=== PATIENT | male | born 1935 | race Caucasian/White ===

== ENCOUNTER 2019-10-14 21:28 | Inpatient (IN) ==
[2019-10-14] MEDS ORDERED: MORPHINE 4 MG/1 ML VIAL IV ONE (23:45)
[2019-10-14] MEDS ORDERED: ONDANSETRON 4 MG/2 ML VIAL IV STA (23:45)
[2019-10-15 00:20] LABS: Apearance,Urine CLEAR (Clear); Bilirubin,Urine Negative (Negative); Blood, Urine Negative (Negative); Glucose,Urine (UA) >=500 mg/dL (Negative); Hyaline Casts,Urine 1 /LPF (0-3); Ketones,Urine Negative (Negative); Nitrite,Urine Negative (Negative); Protein,Urine Negative; RBC,Urine 1 /HPF (0-4); Renal Epithelial Cells,Urine Occasional /HPF (<1); Squamous Epithelial Cell,Urine Occasional /HPF (0-10); Urine Color Straw (Yellow); Urine Specific Gravity 1.013 (1.001-1.035); Urine Urobilinogen < 2.0 EU/DL (0.2-1.0); WBC,Urine 1 /HPF (0-6)
[2019-10-15] MEDS ORDERED: PROMETHAZINE 25 MG/1 ML VIAL IM PRN (00:35)
[2019-10-15] MEDS ORDERED: hydrALAZINE 20 MG/1 ML VIAL IV PRN (00:35)
[2019-10-15] MEDS ORDERED: diphenhydrAMINE CAP 25 MG CAPSULE PO PRN (00:35)
[2019-10-15] MEDS ORDERED: DEXTROSE 50% 25 GM/50 ML VIAL IV PRN ×2 (00:35→05:20)
[2019-10-15] MEDS ORDERED: DOCUSATE SODIUM 100 MG CAPSULE PO PRN (00:35)
[2019-10-15] MEDS ORDERED: GLUCAGON 1 MG VIAL IM PRN ×2 (00:35→05:20)
[2019-10-15] MEDS ORDERED: ONDANSETRON 4 MG/2 ML VIAL IV PRN (00:35)
[2019-10-15] MEDS ORDERED: ZALEPLON 5 MG CAPSULE PO PRN (00:35)
[2019-10-15] MEDS ORDERED: NICOTINE 21 MG/24 HR PATCH TRANSDERM PRN (00:35)
[2019-10-15 00:37] LABS: Calcium 9.2 MG/DL (8.5-10.1); Osmolality,Calculated 282.4 MOS/KG (273-304)
[2019-10-15 00:55] LABS: Basophils % 0.1 % (0.0-0.8); Eosinophils % 0.2 % (0.00-10.9); Hematocrit 35.8 VOL% (42.0-52.0); Hemoglobin 12.1 GM/DL (14.0-18.0); Immature Granulocytes Absolute 0.12 #; Lymphocytes # 0.9 10*3/uL (1.4-4.0); Lymphocytes % 7.5 % (21.2-54.2); Mean Corpuscular HGB Conc 33.8 GM/DL (32-36); Mean Corpuscular Volume 88.6 FL (87-102); Mean Platelet Volume 10.6 FL (9.6-12.0); Monocytes % 5.3 % (1.7-12.7); Neutrophils % 85.9 % (38.7-73.9); PT Patient Result 10.5 SECS (9.8-11.9); Partial Thromboplastin Time 28.5 SECS (23.9-33.8); Platelet Count 167 T/CUMM (130-400); Red Blood Count 4.04 MC/CUMM (3.8-5.5); Red Cell Distribution Width 12.5 % (9.3-17.3)
[2019-10-15] MEDS: MORPHINE 4 MG/1 ML VIAL IV PRN (02:06)
[2019-10-15] MEDS: POTASSIUM CHLORIDE 20 MEQ TABLET PO SCH ×2 (02:33→14:05)
[2019-10-15] MEDS: SODIUM CHLOR 0.9% KCL 40 MEQ 40 MEQ/1,000 ML BAG IV SCH ×2 (03:53→14:04)
[2019-10-15 06:17] LABS: Basophils % 0.2 % (0.0-0.8); Hematocrit 33.1 VOL% (42.0-52.0); Hemoglobin 11.3 GM/DL (14.0-18.0); Immature Granulocytes % 0.6 %; Immature Granulocytes Absolute 0.07 #; Lymphocytes # 0.8 10*3/uL (1.4-4.0); Lymphocytes % 6.3 % (21.2-54.2); Mean Corpuscular HGB Conc 34.1 GM/DL (32-36); Mean Corpuscular Volume 88.3 FL (87-102); Mean Platelet Volume 10.6 FL (9.6-12.0); Monocytes % 5.6 % (1.7-12.7); Neutrophils % 87.3 % (38.7-73.9); Platelet Count 158 T/CUMM (130-400); Red Blood Count 3.75 MC/CUMM (3.8-5.5); Red Cell Distribution Width 12.6 % (9.3-17.3); White Blood Count 12.4 T/CUMM (4-12)
[2019-10-15] MEDS ORDERED: ceFAZolin 2,000 MG in PREMIX 1 EACH IV ONE (06:42)
[2019-10-15 06:43] LABS: Albumin 3.1 G/DL (3.4-5.0); Bilirubin,Total 0.8 MG/DL (0.2-1.0); Calcium 8.9 MG/DL (8.5-10.1); Total Protein 6.7 G/DL (6.4-8.3)
[2019-10-15 06:44] LABS: Osmolality,Calculated 283.2 MOS/KG (273-304)
[2019-10-15] MEDS: PANTOPRAZOLE 40 MG VIAL IV SCH (10:06)
[2019-10-15] MEDS ORDERED: ROPIVACAINE 0.5% 30 ML VIAL ONE (13:39)
[2019-10-15] MEDS: INSULIN LISPRO 100 UNIT/ML SUBCUT SCH ×4 (14:04→20:41)
[2019-10-15] MEDS ORDERED: fentaNYL 100 MCG/2 ML VIAL ONE (14:12)
[2019-10-15] MEDS ORDERED: fentaNYL 100 MCG/2 ML VIAL IV ONE (14:31)
[2019-10-15] MEDS ORDERED: DEXMEDETOMIDINE 200 MCG/2 ML VIAL ONE (14:58)
[2019-10-15] MEDS ORDERED: TRANEXAMIC ACID 1,000 MG/10 ML VIAL ONE (14:58)
[2019-10-15] MEDS ORDERED: BUPIVACAINE SPINAL 0.75% 2 ML AMP SPINAL ONE (14:58)
[2019-10-15] MEDS ORDERED: ceFAZolin 1,000 MG VIAL ONE (15:35)
[2019-10-15] MEDS ORDERED: BACITRACIN OINT 0.9 GM PACK TOP ONE (16:45)
[2019-10-15] MEDS ORDERED: KETAMINE 500 MG/10 ML VIAL ONE (17:07)
[2019-10-15] MEDS ORDERED: PHENYLEPHRINE 1 MG/10 ML SYRINGE IV ONE (17:08)
[2019-10-15] MEDS: KETOROLAC 15 MG/1 ML VIAL IV SCH ×2 (18:18→20:44)
[2019-10-15] MEDS: ceFAZolin 2,000 MG in PREMIX 1 EACH IV SCH (18:44)
[2019-10-16] MEDS: POTASSIUM CHLORIDE 20 MEQ TABLET PO SCH ×2 (01:11→13:35)
[2019-10-16] MEDS: ceFAZolin 2,000 MG in PREMIX 1 EACH IV SCH (03:50)
[2019-10-16] MEDS: KETOROLAC 15 MG/1 ML VIAL IV SCH ×2 (04:44→09:37)
[2019-10-16] MEDS: SODIUM CHLOR 0.9% KCL 40 MEQ 40 MEQ/1,000 ML BAG IV SCH ×3 (04:46→16:54)
[2019-10-16 06:28] LABS: Basophils % 0.1 % (0.0-0.8); Eosinophils % 0.2 % (0.00-10.9); Hematocrit 26.2 VOL% (42.0-52.0); Hemoglobin 8.8 GM/DL (14.0-18.0); Immature Granulocytes % 0.3 %; Immature Granulocytes Absolute 0.03 #; Lymphocytes # 1.1 10*3/uL (1.4-4.0); Lymphocytes % 11.8 % (21.2-54.2); Mean Corpuscular HGB Conc 33.6 GM/DL (32-36); Mean Platelet Volume 10.3 FL (9.6-12.0); Monocytes % 7.7 % (1.7-12.7); Neutrophils % 79.9 % (38.7-73.9); Platelet Count 133 T/CUMM (130-400); Red Blood Count 2.91 MC/CUMM (3.8-5.5); Red Cell Distribution Width 12.9 % (9.3-17.3); White Blood Count 9.2 T/CUMM (4-12)
[2019-10-16 06:44] LABS: Calcium 8.1 MG/DL (8.5-10.1); Osmolality,Calculated 286.7 MOS/KG (273-304)
[2019-10-16] MEDS: INSULIN LISPRO 100 UNIT/ML SUBCUT SCH ×4 (08:31→21:15)
[2019-10-16] MEDS: PANTOPRAZOLE 40 MG VIAL IV SCH (08:32)
[2019-10-16] MEDS: FONDAPARINUX 2.5 MG/0.5 ML SYRINGE SUBCUT SCH (09:37)
[2019-10-16] MEDS: ACETAMINOPHEN 325 MG TABLET PO PRN (16:53)
[2019-10-17] MEDS: POTASSIUM CHLORIDE 20 MEQ TABLET PO SCH ×2 (01:00→13:38)
[2019-10-17] MEDS: SODIUM CHLOR 0.9% KCL 40 MEQ 40 MEQ/1,000 ML BAG IV SCH ×2 (01:16→16:53)
[2019-10-17] MEDS: MORPHINE 4 MG/1 ML VIAL IV PRN (02:11)
[2019-10-17 08:02] LABS: Basophils % 0.1 % (0.0-0.8); Eosinophils # 0.1 10*3/uL (0.0-0.87); Eosinophils % 1.7 % (0.00-10.9); Hematocrit 22.3 VOL% (42.0-52.0); Hemoglobin 7.5 GM/DL (14.0-18.0); Immature Granulocytes % 0.7 %; Immature Granulocytes Absolute 0.05 #; Lymphocytes # 1.6 10*3/uL (1.4-4.0); Lymphocytes % 20.6 % (21.2-54.2); Mean Corpuscular HGB Conc 33.6 GM/DL (32-36); Mean Corpuscular Volume 89.6 FL (87-102); Mean Platelet Volume 11.1 FL (9.6-12.0); Monocytes % 6.2 % (1.7-12.7); NRBC # 0.02 10*3/uL; Neutrophils % 70.7 % (38.7-73.9); Platelet Count 117 T/CUMM (130-400); Red Blood Count 2.49 MC/CUMM (3.8-5.5); White Blood Count 7.6 T/CUMM (4-12)
[2019-10-17] MEDS ORDERED: FUROSEMIDE 40 MG/4 ML VIAL IV PRN (08:18)
[2019-10-17] MEDS ORDERED: SODIUM CHLORIDE 0.9% 1,000 ML IV PRN (08:18)
[2019-10-17 08:25] LABS: Calcium 8.2 MG/DL (8.5-10.1)
[2019-10-17] MEDS: PANTOPRAZOLE 40 MG VIAL IV SCH (08:38)
[2019-10-17] MEDS: FONDAPARINUX 2.5 MG/0.5 ML SYRINGE SUBCUT SCH (08:38)
[2019-10-17] MEDS: INSULIN LISPRO 100 UNIT/ML SUBCUT SCH ×4 (08:38→22:34)
[2019-10-17] MEDS: ACETAMINOPHEN 325 MG TABLET PO PRN (14:47)
[2019-10-17] MEDS: MAGNESIUM HYDROXIDE SUSP 30 ML UDCUP PO PRN (16:22)
[2019-10-18 00:45] LABS: Hematocrit 33.7 VOL% (42.0-52.0); Hemoglobin 11.5 GM/DL (14.0-18.0)
[2019-10-18] MEDS: POTASSIUM CHLORIDE 20 MEQ TABLET PO SCH (04:32)
[2019-10-18 07:04] LABS: Basophils % 0.2 % (0.0-0.8); Eosinophils # 0.1 10*3/uL (0.0-0.87); Eosinophils % 0.9 % (0.00-10.9); Hematocrit 32.1 VOL% (42.0-52.0); Hemoglobin 11.1 GM/DL (14.0-18.0); Immature Granulocytes % 0.7 %; Immature Granulocytes Absolute 0.06 #; Lymphocytes # 1.1 10*3/uL (1.4-4.0); Lymphocytes % 11.8 % (21.2-54.2); Mean Corpuscular HGB Conc 34.6 GM/DL (32-36); Mean Corpuscular Volume 86.8 FL (87-102); Mean Platelet Volume 10.9 FL (9.6-12.0); Monocytes % 6.7 % (1.7-12.7); Neutrophils % 79.7 % (38.7-73.9); Platelet Count 154 T/CUMM (130-400); Red Cell Distribution Width 13.2 % (9.3-17.3); White Blood Count 9.1 T/CUMM (4-12)
[2019-10-18 07:21] LABS: Osmolality,Calculated 280.1 MOS/KG (273-304)
[2019-10-18 07:49] VITALS: BP 120/61
[2019-10-18] MEDS: INSULIN LISPRO 100 UNIT/ML SUBCUT SCH ×2 (08:02→12:24)
[2019-10-18] MEDS: MAGNESIUM HYDROXIDE SUSP 30 ML UDCUP PO PRN (09:07)
[2019-10-18] MEDS: FONDAPARINUX 2.5 MG/0.5 ML SYRINGE SUBCUT SCH (09:07)
[2019-10-18] MEDS: PANTOPRAZOLE 40 MG VIAL IV SCH (09:07)
== END 2019-10-18 12:21 | DRG 481 ==
LOC: EDBD → EDUNIT# → N.ED 21:28 → N.EDINP 10-15 00:35 → SUATTDRO 10-15 00:35 → N.3E 10-15 01:28
PROVIDERS: ADMIT Internal Medicine; ATTEND Internal Medicine